=== PATIENT | female | born 1965 | race African-American/Black ===

== ENCOUNTER → 2018-03-19 | Outpatient (CLI) | payer OTHER | END | disposition home or self-care (01) | LOC: KCIC US 08:05 | DX: E04.2 Nontoxic multinodular goiter (principal) | CPT/HCPCS: 76536 ==

== ENCOUNTER → 2018-03-26 | Outpatient (CLI) | payer OTHER | END | disposition home or self-care (01) | LOC: NM 07:59 | DX: D35.1 Benign neoplasm of parathyroid gland (principal) | CPT/HCPCS: 78070; 96374; A9500 ==